=== PATIENT | female | born 2000 | race African-American/Black ===

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

== ENCOUNTER 2019-01-27 11:33 | Emergency (ER) | payer MEDICAID ==
[2019-01-27] MEDS ORDERED: NAPROXEN 250 MG TABLET PO ONE (12:47)
--- NOTE | 2019-01-27 12:53 | ER Document Report ---
HPI - HPI Time Seen by Provider: 01/27/19 12:38 Pain Level: 5 Context: Patient is a 18-year-old female presents to the emergency department with a chief complaint of right knee pain. Patient states that one year ago she injured the right knee. Patient states she was seen here in the emergency department and had an x-ray which was negative. Patient states at that time she was given a knee immobilizer and crutches which did seem to help with her pain. Patient states that she stopped using these devices the pain returned. Patient states she was told she may have to follow-up with orthopedics but has not done so. Patient denies recent injury or fall. Patient states over the past year the right knee pain is gotten worse. Patient states she has taken ibuprofen with minimal relief. Patient denies swelling to the knee. - REPRODUCTIVE Reproductive: DENIES: : - MUSCULOSKELETAL Musculoskeletal: REPORTS: Extremity pain - right knee Past Medical History - General Information source: Patient - Social History Smoking Status: Unknown if Ever Smoked Frequency of alcohol use: None Drug Abuse: None Family History: Arthritis, DM, Hyperlipidemia, Hypertension, Thyroid Disfunction Patient has suicidal ideation: No Patient has homicidal ideation: No - Past Medical History Cardiac Medical History: Reports: None Pulmonary Medical History: Reports: Hx Asthma EENT Medical History: Reports: None Neurological Medical History: Reports: None Endocrine Medical History: Reports: None Renal/ Medical History: Reports: None. Denies: Hx Peritoneal Dialysis Malignancy Medical History: Reports: None GI Medical History: Reports: None Musculoskeletal Medical History: Reports None Skin Medical History: Reports None Psychiatric Medical History: Reports: None Traumatic Medical History: Reports: None Infectious Medical History: Reports: None. Denies: Hx MRSA Past Surgical History: Reports: Hx Oral Surgery - wisdom - Immunizations Immunizations up to date: Yes Hx Diphtheria, Pertussis, Tetanus Vaccination: Yes Vertical Provider Document - CONSTITUTIONAL Agree With Documented VS: Yes Exam Limitations: No Limitations General Appearance: No Apparent Distress - INFECTION CONTROL TRAVEL OUTSIDE OF THE [place] IN LAST 30 DAYS: No - HEENT HEENT: Atraumatic, Normocephalic, PERRLA - RESPIRATORY Respiratory: Breath Sounds Normal, No Respiratory Distress - CARDIOVASCULAR Cardiovascular: Regular Rate, Regular Rhythm - GI/ABDOMEN Gastrointestinal: Abdomen Soft, Abdomen Non-Tender, Normal Bowel Sounds - MUSCULOSKELETAL/EXTREMETIES Notes: Tenderness noted above and below the patella. Patient has no tenderness to the patella. Patient has no tenderness to the posterior knee or in the medial or lateral aspect. There is no erythema, ecchymosis or edema. Patient has full range of motion in flexion extension to the right knee. Patient is able to ambulate with a steady gait. - NEURO Level of Consciousness: Awake, Alert, Appropriate - DERM Integumentary: Warm, Dry, No Rash Course - Re-evaluation Re-evalutation: 01/27/19 12:54 I do not believe the patient requires an x-ray at this time due to chronic knee pain for 1 year. I did inform the patient to continue take NSAIDs, rest, ice and elevate the knee. We will place the patient in an immobilizer with crutches for comfort. I did inform the patient that since her pain is chronic she needs to follow-up with orthopedics as she may require a further work-up. Patient raysa balized understanding denies questions. - Vital Signs Vital signs: Temp Pulse Resp BP Pulse Ox 97.7 F 80 18 109/76 100 01/27/19 11:45 01/27/19 11:45 01/27/19 11:45 01/27/19 11:45 01/27/19 11:45 Discharge - Discharge Clinical Impression: Knee pain Qualifiers: Chronicity: chronic Laterality: right Qualified Code(s): M25.561 - Pain in right knee; G89.29 - Other chronic pain Condition: Stable Disposition: HOME, SELF-CARE Instructions: Knee Immobilizing Splint ([facility]), Ice & Elevation ([facility]), Use of Crutches ([facility]) Additional Instructions: Today you are seen in the emergency department for right knee pain. This is been present for 1 year but worse over the past few weeks. Since there is no recent injury or fall I do not believe an x-ray is necessary at this time. Since you have had this discomfort for about 1 year I do recommend following up with orthopedics. We have placed you in a knee immobilizing splint and given you crutches. This is for comfort. Please ice and elevate the knee and rest. Please return to the emergency department if you have any new or worsening symptoms. You can take [id number] anti-inflammatory such as naproxen, ibuprofen or Aleve. Do not take multiple NSAIDs at once. Knee Immobilizing Splint The knee immobilizing splint will protect the injury while healing begins. This type of splint does not allow the knee to bend at all. No running or sports will be possible. If the splint allows painfree walking, it's giving adequate protection. If there is still significant pain, crutches may be needed as well. Don't do anything that hurts. Adjusted the splint, if necessary. The stiffeners on the sides are attached with Velcro, so they can be easily moved to adjust for thigh and calf size. If you need help with these adjustments, come back. You will lose muscle strength in the thigh while using this splint. The doctor will advise you if it's safe to do isometric knee exercises while you use it. Referrals: PADMINI CAMPO MD [Primary Care Provider] - Follow up as needed GLENN MAYORGA DO [ACTIVE STAFF] - Follow up as needed SMILEY CASTANO MD [ACTIVE STAFF] - Follow up as needed BENNETT MARIN MD [ACTIVE PROVISIONAL STAFF] - Follow up as needed
[2019-01-27 13:22] VITALS: BP 117/77
== END 2019-01-27 13:20 | disposition home or self-care (01) ==
LOC: ER 11:33
DX: M25.561 Pain in right knee (principal); G89.29 Other chronic pain; X58.XXXA Exposure to other specified factors, initial encounter; J45.909 Unspecified asthma, uncomplicated
CPT/HCPCS: 99283; L1830; J3490

== ENCOUNTER 2019-03-06 08:45 | Emergency (ER) | payer MEDICAID ==
--- NOTE | 2019-03-06 10:32 | ER Document Report ---
ED General - General Chief Complaint: Nausea/Vomiting Stated Complaint: VOMITING,ABDOMINAL PAIN Time Seen by Provider: 03/06/19 10:32 Primary Care Provider: PADMINI CAMPO MD [Primary Care Provider] - Follow up as needed TRAVEL OUTSIDE OF THE [place] IN LAST 30 DAYS: No - HPI Patient complains to provider of: Nausea vomiting Notes: Well-appearing 18-year-old female presents with approximately 3 to 4 hours of nausea vomiting and diarrhea. Patient cramping abdominal pain that has now resolved. Denies fever. Is any trauma to her abdomen. Patient was at work this morning had another episode of emesis came in for evaluation. Denies any sick contacts recent antibiotics or travel, no new foods. - Related Data Allergies/Adverse Reactions: No Known Allergies Allergy (Verified 01/27/19 11:33) Past Medical History - Social History Smoking Status: Never Smoker Chew tobacco use (# tins/day): No Frequency of alcohol use: None Drug Abuse: None Family History: Arthritis, DM, Hyperlipidemia, Hypertension, Thyroid Disfunction Patient has suicidal ideation: No Patient has homicidal ideation: No Pulmonary Medical History: Reports: Hx Asthma Renal/ Medical History: Denies: Hx Peritoneal Dialysis Infectious Medical History: Denies: Hx MRSA Past Surgical History: Reports: Hx Oral Surgery - wisdom - Immunizations Immunizations up to date: Yes Hx Diphtheria, Pertussis, Tetanus Vaccination: Yes Review of Systems - Review of Systems Notes: REVIEW OF SYSTEMS: CONSTITUTIONAL: -fevers, -chills EENT: -eye pain, -difficulty swallowing, -nasal congestion CARDIOVASCULAR: -chest pain, -syncope. RESPIRATORY: -cough, -SOB GASTROINTESTINAL: -abdominal pain, positive, nausea, vomiting, diarrhea GENITOURINARY: -dysuria, -hematuria MUSCULOSKELETAL: -back pain, -neck pain SKIN: -rash or skin lesions. HEMATOLOGIC: -easy bruising or bleeding. LYMPHATIC: -swollen, enlarged glands. NEUROLOGICAL: -altered mental status or loss of consciousness, -headache, - neurologic symptoms PSYCHIATRIC: -anxiety, -depression. ALL OTHER SYSTEMS REVIEWED AND NEGATIVE. Physical Exam - Vital signs Vitals: Temp Pulse Resp BP Pulse Ox 98.7 F 77 14 122/68 100 03/06/19 08:49 03/06/19 08:49 03/06/19 08:49 03/06/19 08:49 03/06/19 08:49 - Notes Notes: PHYSICAL EXAMINATION: GENERAL: Well-appearing, well-nourished and in no acute distress. HEAD: Atraumatic, normocephalic. EYES: Pupils equal round and reactive to light, extraocular movements intact, sc maria guadalupe anicteric, conjunctiva are normal. ENT: nares patent, oropharynx clear without exudates. Moist mucous membranes. NECK: Normal range of motion, supple without lymphadenopathy LUNGS: Breath sounds clear to auscultation bilaterally and equal. No wheezes rales or rhonchi. HEART: Regular rate and rhythm without murmurs ABDOMEN: Soft, nontender, normoactive bowel sounds. No guarding, no rebound. No masses appreciated. EXTREMITIES: Normal range of motion, no pitting or edema. No cyanosis. NEUROLOGICAL: Cranial nerves grossly intact. Normal speech, normal gait. Normal sensory and motor exams. PSYCH: Normal mood, normal affect. SKIN: Warm, Dry, normal turgor, no rashes or lesions noted. Course - Re-evaluation Re-evalutation: 03/06/19 11:26 Normally healthy 18-year-old female presents with signs and symptoms of gastroe nteritis. No leukocytosis, preserved kidney function. Given antiemetics and a breathing treatment at her request. Will be discharged home improved follow-up PCP in the next few days. Return if anything changes - Vital Signs Vital signs: Temp Pulse Resp BP Pulse Ox 98.7 F 77 14 122/68 100 03/06/19 08:49 03/06/19 08:49 03/06/19 08:49 03/06/19 08:49 03/06/19 08:49 - Laboratory Result Diagrams: 03/06/19 10:04 03/06/19 10:04 Laboratory results interpreted by me: 03/06/19 10:04 MCH 25.6 L Discharge - Discharge Clinical Impression: Gastroenteritis Condition: Stable Disposition: HOME, SELF-CARE Instructions: Antinausea Medication ([facility]) Prescriptions: Ondansetron [Zofran Odt 4 mg Tablet] 1 - 2 tab PO Q4H PRN #15 tab.rapdis PRN Reason: For Nausea/Vomiting Referrals: PADMINI CAMPO MD [Primary Care Provider] - Follow up as needed
[2019-03-06] MEDS ORDERED: ONDANSETRON HCL INJ/PF 4 MG/2 ML SDV IV ONE (10:39)
[2019-03-06 10:40] LABS: ABSOLUTE EOSINOPHILS # (AUTO) 0.1 10^3/uL (0.0-0.6); ABSOLUTE LYMPHOCYTES (AUTO) 1.7 10^3/uL (0.5-4.7); ABSOLUTE MONOCYTES (AUTO) 0.3 10^3/uL (0.1-1.4); ABSOLUTE NEUT (AUTO) 2.4 10^3/uL (1.7-8.2); BASOPHILS % (AUTO) 0.3 % (0-2); EOSINOPHILS % (AUTO) 2.3 % (0-6); HEMATOCRIT 40.7 % (36.0-47.0); HEMOGLOBIN 13.1 g/dL (12.0-15.5); LYMPHOCYTES % (AUTO) 37.3 % (13-45); MEAN CORPUSCULAR HEMOGLOBIN 25.6 pg (27.0-33.4); MEAN CORPUSCULAR HGB CONC 32.2 g/dL (32.0-36.0); MEAN CORPUSCULAR VOLUME 80 fl (80-97); MONOCYTES % (AUTO) 7.1 % (3-13); PLATELET COUNT 362 10^3/uL (150-450); RED BLOOD COUNT 5.11 10^6/uL (3.72-5.28); RED CELL DISTRIBUTION WIDTH 13.8 % (11.5-14.0); TOTAL CELLS COUNTED % (AUTO) 100 %; WHITE BLOOD COUNT 4.5 10^3/uL (4.0-10.5)
[2019-03-06] MEDS ORDERED: IPRATROPIUM/ALBUTEROL 0.5-2.5 MG/3 ML AMPUL NEB ONE (11:01)
[2019-03-06 11:06] LABS: ALBUMIN 4.4 g/dL (3.7-5.6); ALKALINE PHOSPHATASE 69 U/L (50-135); ANION GAP 9 (5-19); ASPARTATE AMINO TRANSFERASE 23 U/L (5-30); BLOOD UREA NITROGEN 12 mg/dL (7-20); CALCIUM 9.7 mg/dL (8.4-10.2); CARBON DIOXIDE 25 mmol/L (22-30); CHLORIDE 106 mmol/L (98-107); GLUCOSE 81 mg/dL (75-110); POTASSIUM 4.3 mmol/L (3.6-5.0); TOTAL PROTEIN 7.6 g/dL (6.3-8.2)
[2019-03-06 11:34] VITALS: BP 116/71
[2019-03-06 11:42] LABS: APPEARANCE,URINE SLIGHTLY-CLOUDY; BILIRUBIN,URINE NEGATIVE (NEGATIVE); COLOR,URINE YELLOW; GLUCOSE, URINE NEGATIVE (NEGATIVE); KETONES,URINE NEGATIVE (NEGATIVE); LEUKOCYTE ESTERASE,URINE NEGATIVE (NEGATIVE); NITRITE,URINE NEGATIVE (NEGATIVE); PROTEIN,URINE 30 mg/dL (NEGATIVE); URINE SPECIFIC GRAVITY 1.033; UROBILINOGEN,URINE NEGATIVE mg/dL (<2.0)
== END 2019-03-06 11:42 | disposition home or self-care (01) ==
LOC: ER 08:45
DX: K52.9 Noninfective gastroenteritis and colitis, unspecified (principal); R11.2 Nausea with vomiting, unspecified; J45.909 Unspecified asthma, uncomplicated
CPT/HCPCS: 36415; 84702; 83690; 85025; 81025; 80053; 81001; J2405; J7620

== ENCOUNTER 2019-07-30 16:34 | Emergency (ER) | payer SELFPAY ==
[2019-07-30 17:24] VITALS: BP 123/66
== END 2019-07-30 19:00 | disposition left against medical advice (07) ==
LOC: ER 16:34
DX: Z53.21 Procedure and treatment not carried out due to patient leaving prior to being seen by health care provider (principal)